=== PATIENT | male | born 1940 | race Caucasian/White ===

== ENCOUNTER → 2016-12-07 | Outpatient (CLI) | payer MEDICARE ==
--- NOTE | 2016-12-07 15:11 | REP ---
RIGHT SUBMANDIBULAR ULTRASOUND: Real-time sonographic evaluation of the right submandibular soft tissues performed in an area of swelling for two months. At that location, a normal sized lymph nodes is seen with an echogenic hilum. The lymph node measures 6 x 10 x 6 mm. No other cystic or solid nodule is seen. IMPRESSION: Normal lymph node in the right submandibular region without other significant abnormality. Signed by Bharathi Mcneil MD 12/07/2016 03:17 P
== END ==
LOC: M RAD 13:25
PROVIDERS: ATTEND Hospitalist
DX: R22.1 Localized swelling, mass and lump, neck (principal)

== ENCOUNTER → 2020-03-23 | Outpatient (REF) | payer MEDICARE | LOC: M SFHCCLAY 16:19 | PROVIDERS: ATTEND Physician Assistant | DX: R30.0 Dysuria (principal) ==

== ENCOUNTER → 2021-12-13 | Outpatient (CLI) | payer MEDICARE | LOC: M RAD 09:55 | PROVIDERS: ATTEND Hospitalist | DX: J84.10 Pulmonary fibrosis, unspecified (principal) ==